=== PATIENT | female | born 1975 | race Caucasian/White ===

== ENCOUNTER → 2023-01-08 08:49 | Outpatient (CLI) | payer OTHER, SELFPAY ==
[2023-01-08 09:59] LABS: Add Manual Diff / Slide Review NO; Basophils Absolute Auto 0 /uL (0-100); Basophils Percent Auto 0.4 % (0-2); Eosinophils Absolute Auto 100 /uL (0-450); Eosinophils Percent Auto 1.6 % (2-4); Hematocrit 37.3 % (36-46); Hemoglobin 12.7 g/dL (12.0-16.0); Lymphocytes Absolute Auto 1500 /uL (1100-4500); Lymphocytes Percent Auto 17.2 % (25-40); Mean Corpuscular HGB Conc 34.1 % (30-36); Mean Corpuscular Hemoglobin 30.1 PG (26-34); Mean Corpuscular Volume 88.3 fL (80-100); Monocytes Absolute Auto 500 /uL (0-900); Monocytes Percent Auto 6.3 % (3-14); Neutrophils Absolute Auto 6400 /uL (1500-7000); Neutrophils Percent Auto 74.5 % (50-75); Platelet Count 244 X10^3/uL (150-400); Red Blood Cell Count 4.22 X10^6/uL (4.0-5.2); Red Cell Distribution Width 12.6 % (11.6-14.8); White Blood Cell Count 8.6 X10^3/uL (4.5-11.0)
[2023-01-08 10:17] LABS: Alanine Aminotransferase 23 IU/L (<35); Albumin 3.9 g/dL (3.5-5.0); Albumin Globulin Ratio 1.3 (1.0-2.8); Alkaline Phosphatase 57 U/L (38-126); Aspartate Aminotransferase 19 IU/L (14-36); Bilirubin Total 0.3 mg/dL (0.2-1.3); Blood Urea Nitrogen 12 mg/dL (7-17); Calcium 8.6 mg/dL (8.4-10.2); Carbon Dioxide 29 mmol/L (22-32); Chloride 103 mmol/L (98-107); Cholesterol 224 mg/dL (140-199); Estimated Glomerular Filt Rate > 60 mL/min (>60); Globulin 2.9 g/dL (1.7-4.1); Glucose 100 mg/dL (70-100); HDL Cholesterol 59 mg/dL (40-60); HEMOLYSIS < 15 (0-50); LDL Cholesterol Calculated 113 mg/dL (<100); Potassium 4.6 mmol/L (3.4-5.1); Sodium 137 mmol/L (137-145); Total Protein 6.8 g/dL (6.3-8.2); Triglycerides 258 mg/dL (35-150)
[2023-01-08 10:45] LABS: TSH w/ Reflex to FT4 1.55 uIU/mL (0.47-4.68)
== END ==
PROVIDERS: Family Provider Family Medicine; PCP Family Medicine; Referring Provider Family Medicine; Visit Provider Family Medicine
DX: Z00.00 Encounter for general adult medical examination without abnormal findings (principal); E78.5 Hyperlipidemia, unspecified
CPT/HCPCS: 36415; 80053; 80061; 84443; 85025

== ENCOUNTER 2023-03-01 12:30 | Day surgery (SDC) | payer OTHER, SELFPAY ==
--- NOTE | 2023-03-01 | PATH_ITS ---
[facility] Accession Number: [id number] No. of containers..04 Tissue . 01 Material submitted: . PART A: rectum - RECTAL POLYP # 1 PART B: colon - DESCENDING POLYP # 1-LARGE PART C: colon - DESCENDING COLON POLYP # 2 -SMALL PART D: rectum - RECTAL POLYP # 2 . 01 Diagnosis: A. Rectum, Polyp #1: Tubular adenoma. . B. Descending, Polyp #1-Large: Tubular adenoma. . C. Descending Colon, Polyp #2-Small: Tubular adenoma. . D. Rectum, Polyp #2, Hyperplastic polyp. [facility] 03/08/2023 1742 Local . 01 Electronically signed: . Irina Allen MD, Pathologist NPI- [id number] . 01 Gross description: . Part A: RECTAL POLYP # 1: Received in formalin are 3 fragment(s) of barrow, soft tissue measuring 0.3 x 0.3 x 0.2 cm to 0.5 x 0.4 x 0.3 cm submitted entirely in 1 cassette(s) Part B: DESCENDING POLYP # 1-LARGE: Received in formalin are multiple fragment(s) of barrow, soft tissue measuring 0.1 x 0.1 x 0.1 cm to 0.8 x 0.4 x 0.2 cm submitted entirely in 1 cassette(s) Part C: DESCENDING COLON POLYP # 2 -SMALL: Received in formalin is 1 fragment(s) of barrow, soft tissue measuring 0.4 x 0.3 x 0.2 cm submitted entirely in 1 cassette(s) Part D: RECTAL POLYP # 2: Received in formalin is 1 fragment(s) of barrow, soft tissue measuring 0.7 x 0.3 x 0.2 cm submitted entirely in 1 cassette(s) /[place] 03/06/2023 0050 Local . 01 Pathologist provided ICD-10: D12.8, D12.4 . 01 CPT . 176455, 819340, 042140, [id number] Specimen Comment: A courtesy copy of this report has been sent to [facility] Performed at: 01 [facility] [address] [place] [address], [place], [place] [id number] MD Hebert Doherty MD Phone: [phone]
[2023-03-01 12:51] VITALS: BP 123/75; PULSE 100; RESP 16; TEMP 36.1; O2SAT 97; BMI 29.1
[2023-03-01] MEDS: LACTATED RINGERS 1,000 ML 150 ML IV (12:58)
--- NOTE | 2023-03-01 13:57 | P.HP_ITS ---
History of Present Illness History of Present Illness Date Patient Seen: 03/01/23 Time Patient Seen: 13:57 Chief complaint: Screening Colonoscopy Narrative: Ms. Geiger is a 47-year-old female who presents today for her 1st screening colonoscopy. She has no family history of colon cancer and no concerning symptoms no bleeding from below she does occasionally have constipation and what she describes as a fissure that it causes occasional pain especially after hard bowel movement. She attributes this to an obstetric issue when she had her son 20 years ago. Overall she is not concerned and she had her questions answered and would like to proceed with a screening colonoscopy today. [facility] Medical History Abnormal Pap smear of cervix (~1995) Borderline hyperlipidemia Human papilloma virus Lumbar strain Preventative health care Sciatica Skin lesion Wears glasses Surgical History Anesthesia [place] teeth removed (~1995) Family History Father Heart valve problem Mother Hyperlipidemia History of heart surgery History of hip replacement History of knee replacement Aunt Esophageal cancer Grandfather Cancer Social History household members: spouse Smoking Status: Never smoker Meds Home Medications and Allergies Home Medications Medication Instructions Recorded Confirmed Type norgestimate-ethinyl estradiol 25 mg PO DAILY 10/19/22 03/01/23 History Allergies Allergy/AdvReac Type Severity Reaction Status Date / Time Penicillins Allergy Intermediate Verified 03/01/23 12:47 Exam Vital Signs (past 8 hours): - 03/01/23 12:51 Temperature 97 F L Pulse Rate 100 H Respiratory Rate 16 Blood Pressure 123/75 Pulse Oximetry 97 Oxygen Delivery Method Room Air Oxygen Delivery Method Room Air Const General: cooperative, healthy appearing and comfortable Nutritional Appearance: average body habitus HENMT Head: normal to inspection Eyes General: appearance normal, both eyes and all related structures Resp Effort & Inspection: normal respiratory effort and able to speak in complete sentences GI Palpation: soft and No tender Assessment & Plan Assessment and plan (1) Colon cancer screening: Status: Acute Assessment & Plan narrative: Presents today for screening colonoscopy I discussed the risks benefits and alternatives including but not limited to perforation of the colon and an incomplete exam she fully understands these risks and would like to proceed.
--- NOTE | 2023-03-01 14:54 | P.OP.COLON_ITS ---
Operative Date/Time/Diagnoses Date of procedure: 03/01/23 Time of procedure: 14:54 Pre-op diagnosis: Colon cancer screening, no family history, 1st colonoscopy Post-op diagnosis: same Procedure & Clinicians Study performed: Colonoscopy and biopsy Same procedure as scheduled: Yes Indications: Screening for colon cancer Surgeon: Saumya Carlos Procedure Notes Procedure in detail: Patient was taken to the endoscopy suite and placed in a left lateral decubitus position. A time-out was performed. With the help of anesthesiologist conscious sedation was induced and monitored throughout the case. A digital rectal exam was performed and there were no masses or strictures. The colonoscope was introduced into the anal canal and advanced. In the distal rectum a relatively large polyp was encountered on the way in this was snared and removed. The scope was then advanced the rest of the way through to the cecum. A photograph of the appendiceal orifice was obtained. The bowel prep was excellent [place] bowel prep score of 3. The scope was then withdrawn for a total of 20 minutes including biopsy times. In the descending colon there was 1 large polyp that was snared and removed. There was a 2nd smaller polyp nearby and another small rectal polyp on the way out that were both removed with a biopsy forceps. The scope was then retroflexed and a photograph of some prominent internal hemorrhoidal piles was obtained. Findings: internal hemorrhoids and polyp(s) Specimen(s): other (1. Rectal polyp somewhat large 2. Descending colon polyp large 3. Small descending colon polyp 4. rectal polyp -small) Complications: none Post-procedure Plan for aftercare: Likely a 5-7 year follow-up, depending on the pathology reports. I do recommend a fiber supplement
[2023-03-01 14:58] VITALS: BP 111/67; PULSE 84; RESP 20; TEMP 36; O2SAT 99
[2023-03-01 15:06] VITALS: BP 117/67; PULSE 87; RESP 20; O2SAT 98
[2023-03-01 15:10] VITALS: BP 109/68; PULSE 80; RESP 15; O2SAT 98
[2023-03-01 15:15] VITALS: BP 117/72; PULSE 76; RESP 22; O2SAT 100
== END 2023-03-01 15:23 | disposition home or self-care (01) ==
PROVIDERS: Family Provider Family Medicine; PCP Family Medicine; Referring Provider Surgery; Visit Provider Surgery
PROC: 0DJD8ZZ Inspection of Lower Intestinal Tract, Via Natural or Artificial Opening Endoscopic (ICD-10-PCS; CPT 45378; principal; 2023-03-01 13:30)
DX: Z12.11 Encounter for screening for malignant neoplasm of colon (principal); K64.8 Other hemorrhoids; D12.8 Benign neoplasm of rectum; D12.4 Benign neoplasm of descending colon
CPT/HCPCS: 45385; 45380; J2704

== ENCOUNTER 2023-03-07 08:15 | Outpatient (RCR) | payer OTHER, SELFPAY ==
--- NOTE | 2023-01-08 22:30 | PT.OIE ---
Current Diagnoses Strain of muscle, fascia and tendon of lower back, initial encounter (01/08/23) Unspecified injury of lower back, initial encounter (01/08/23) Past Medical History (Last Updated 11/05/22 @ 19:46 by Sarah Welch) Abnormal Pap smear of cervix (~1995) Borderline hyperlipidemia Human papilloma virus Lumbar strain Preventative health care Sciatica Skin lesion Wears glasses Past Surgical History (Last Updated 11/05/22 @ 19:46 by Sarah Welch) Anesthesia [place] teeth removed (~1995) Visit Care Team Role Provider Type Hernando Salomon DO Attending Provider Physician Family Provider Primary Care Provider Referring Provider Specialty: Family Practice Address: [address] [place] [address], [facility] Email: [email or web address] Initial Evaluation PT-OP-A Visit Information Start: 01/08/23 07:35 Freq: Status: Active Protocol: Document 01/08/23 07:35 AMB (Rec: 01/08/23 08:18 AMB [id number]) Out-Patient Physical Therapy Visit Information Visit Information Visit Type Initial Evaluation Visit Start Time 07:30 Visit Stop Time 08:15 Total Visit Minutes 45 Visit Number 1 PT-OP-B Current Condition Start: 01/08/23 07:35 Freq: Status: Active Protocol: Document 01/08/23 07:35 AMB (Rec: 01/08/23 08:18 AMB [id number]) Current Condition History of Current Condition Onset Date years Current Complaints back pain History of Current Condition [place] like back went out years ago when trying to remove a stump and never really recovered completely, also had sciatica when with second son and continues to get sciatica on and off. Currently main symptoms occur when sitting at the desk increases back pain, can get pain going down the leg. Pain worse at the desk. Does have sit stand desk. Feels like can throw back out was nervous about yoga. Does have an exercise bike. If sitting more than 4 hours in the day then the back hurts, hurts the rest of the day. PT-OP-C Subjective Start: 01/08/23 07:35 Freq: Status: Active Protocol: Document 01/08/23 07:30 AMB (Rec: 01/08/23 15:50 AMB [id number]) Patient Questionnaires Oswestry Low Back Index Oswestry Score 14 Oswestry Impairment 1 to 19% Impaired (Score 1-19) OP-PT Pain Assessment Comments Pain Comments 4/10 in low back and down the right leg PT-OP-J Posture/Palpation/Skin Start: 01/08/23 07:35 Freq: Status: Active Protocol: Document 01/08/23 07:30 AMB (Rec: 01/08/23 16:06 AMB [id number]) Palpation Assessment Location One Palpation Details 2 finger width diastasis recti at umbilicus PT-OP-K Range of Motion Start: 01/08/23 07:35 Freq: Status: Active Protocol: Document 01/08/23 07:30 AMB (Rec: 01/08/23 16:06 AMB [id number]) Lumbar Spine Range of Motion Lumbar Spine Active Degrees Testing Position Standing Comments flat lumbar spine in flexion ( doesn't really flex lumbar). 5 degrees extension, good sidebending, good movement in thoracic spine PT-OP-M Strength Start: 01/08/23 07:35 Freq: Status: Active Protocol: Document 01/08/23 07:35 AMB (Rec: 01/09/23 22:11 AMB [id number]) Hip Strength Hip Manual Muscle Testing Right Flexion (L2) 4+ Good+ Extension (S1) 4 Good Abduction 4+ Good+ Comments mild coning at abdominals seen with resisted hip flexion in supine Left Flexion (L2) 4+ Good+ Extension (S1) 4 Good Abduction 4+ Good+ PT-OP-Q Treatments Start: 01/08/23 07:35 Freq: Status: Active Protocol: Document 01/08/23 07:30 AMB (Rec: 01/08/23 15:52 AMB [id number]) Therapeutic Exercises Other Exercises 2 Other Exercise Name pelvic tilt Reps/Minutes 10 1 Other Exercise Name jeni pose Reps/Minutes 30x2 PT-OP-T Assessment and Plan Start: 01/08/23 07:35 Freq: Status: Active Protocol: Document 01/08/23 07:35 AMB (Rec: 01/09/23 22:30 AMB [id number]) Physical Therapy Assessment Rehab Potential Rehabilitation Potential Good Evaluation Complexity Number of Personal Factors/Comorbidities 0 Number of Body Systems Impaired 4 or More Clinical Presentation at Evaluation Stable Impairments Impairments Activity Tolerance,Pain, Posture,ROM,Strength Goals Sitting tolerance Usp Goal (LTG) Bertha will sit at her desk for 8 hours without an increase in back pain. LTG Duration 10 weeks ROM Short Term Goal (STG) Bertha will improve her lumbar extension AROM to 10 degrees. STG Duration 5 weeks Gum Sprayer Goal (LTG) Bertha will improve her flexion so that her lumbar spine flexes forward (instead of being locked in neutral and flexing at the hips) when she bends forward to touch her toes. LTG Duration 10 weeks One Impairment HEP Short Term Goal (STG) Bertha will be independent with a HEP to improve her core stability and flexibility. STG Duration 4 weeks Assessment Summary Assessment Bertha attends physical therapy with chronic low back pain that can radiate into the legs R>L. Her worst symptoms are with extended sitting, she was fairly unsure about the ergonomic setup of her work station, as she does sit on a ball that may be too short for her. She presents with significant lumbar stiffness especially into flexion and extension, tends to keep lumbar neutral even with jeni pose and pelvic tilt. She does show poor transversus abdominus engagement and tends to over engage with rectus. Bertha will benefit from core stability training and range of motion training to improve her ability to sit with less pain, as well as further evaluation of the ergonomics of her workstation. Physical Therapy Plan Frequency and Duration Frequency of Treatment 2x/Week Duration of treatment (weeks) 10 Plan of Care Start Date 01/08/23 Plan of Care End Date 03/19/23 Therapeutic Interventions Therapeutic Interventions Home Exercise Program,Joint Mobilizations,Manual Therapy, Neuromuscular Re-education, Self-Care/Home Management, Therapeutic Activities, Therapeutic Exercises Modalities Cold Pack/Ice Massage,Electric Stimulation,Hot Packs, Traction- Mechanical Next Visit Focus/Plan Next Note Type Treatment Note Next Visit Plan Follow up on jeni pose and pelvic tilts to improve TA activation and ROM, follow up on ergonomics of workstation
--- NOTE | 2023-01-08 22:31 | PT.OPPOC ---
Physical, Occupational & Speech Therapy At [facility] Current Diagnoses Strain of muscle, fascia and tendon of lower back, initial encounter (01/08/23) Unspecified injury of lower back, initial encounter (01/08/23) Visit Care Team Role Provider Type Hernando Salomon DO Attending Provider Physician Family Provider Primary Care Provider Referring Provider Specialty: Family Practice Address: [address] [place] [address], [facility] Email: [email or web address] Plan Of Care PT-OP-T Assessment and Plan Start: 01/08/23 07:35 Freq: Status: Active Protocol: Document 01/08/23 07:35 AMB (Rec: 01/09/23 22:30 AMB [id number]) Physical Therapy Assessment Rehab Potential Rehabilitation Potential Good Evaluation Complexity Number of Personal Factors/Comorbidities 0 Number of Body Systems Impaired 4 or More Clinical Presentation at Evaluation Stable Impairments Impairments Activity Tolerance,Pain, Posture,ROM,Strength Goals Sitting tolerance Mcfp Goal (LTG) Bertha will sit at her desk for 8 hours without an increase in back pain. LTG Duration 10 weeks ROM Short Term Goal (STG) Bertha will improve her lumbar extension AROM to 10 degrees. STG Duration 5 weeks Superintendent Of Generation Goal (LTG) Bertha will improve her flexion so that her lumbar spine flexes forward (instead of being locked in neutral and flexing at the hips) when she bends forward to touch her toes. LTG Duration 10 weeks One Impairment HEP Short Term Goal (STG) Bertha will be independent with a HEP to improve her core stability and flexibility. STG Duration 4 weeks Assessment Summary Assessment Bertha attends physical therapy with chronic low back pain that can radiate into the legs R>L. Her worst symptoms are with extended sitting, she was fairly unsure about the ergonomic setup of her work station, as she does sit on a ball that may be too short for her. She presents with significant lumbar stiffness especially into flexion and extension, tends to keep lumbar neutral even with jeni pose and pelvic tilt. She does show poor transversus abdominus engagement and tends to over engage with rectus. Bertha will benefit from core stability training and range of motion training to improve her ability to sit with less pain, as well as further evaluation of the ergonomics of her workstation. Physical Therapy Plan Frequency and Duration Frequency of Treatment 2x/Week Duration of treatment (weeks) 10 Plan of Care Start Date 01/08/23 Plan of Care End Date 03/19/23 Therapeutic Interventions Therapeutic Interventions Home Exercise Program,Joint Mobilizations,Manual Therapy, Neuromuscular Re-education, Self-Care/Home Management, Therapeutic Activities, Therapeutic Exercises Modalities Cold Pack/Ice Massage,Electric Stimulation,Hot Packs, Traction- Mechanical Next Visit Focus/Plan Next Note Type Treatment Note Next Visit Plan Follow up on jeni pose and pelvic tilts to improve TA activation and ROM, follow up on ergonomics of workstation Plan of Care Dates Plan of Care Start Date 01/08/23 Plan of Care End Date 03/19/23 Electronically Signed by: Nina Ramey, PT 01/09/23 8246 If you are in agreement with this Plan of Care, please return a signed and dated copy. I have reviewed this Plan of Care and certify that the skilled therapy services above are required to meet the patient?s needs. Physician Signature Date Printed Name and Credentials Clinical Instructor Signature Printed Name and Credentials
--- NOTE | 2023-01-11 08:22 | PT.OTN ---
Current Diagnoses Strain of muscle, fascia and tendon of lower back, initial encounter (01/11/23) Unspecified injury of lower back, initial encounter (01/11/23) Physical Therapy Treatment Note PT-OP-A Visit Information Start: 01/08/23 07:35 Freq: Status: Active Protocol: Document 01/11/23 07:32 SP (Rec: 01/11/23 08:29 SP [id number]) Out-Patient Physical Therapy Visit Information Visit Information Visit Type Treatment Note Visit Start Time 07:33 Visit Stop Time 08:22 Total Visit Minutes 49 Visit Number 2 Number of FLIGHT COORDINATOR Visits 1 PT-OP-B Current Condition Start: 01/08/23 07:35 Freq: Status: Active Protocol: Document 01/08/23 07:35 AMB (Rec: 01/08/23 08:18 AMB [id number]) Current Condition History of Current Condition Onset Date years Current Complaints back pain History of Current Condition [place] like back went out years ago when trying to remove a stump and never really recovered completely, also had sciatica when with second son and continues to get sciatica on and off. Currently main symptoms occur when sitting at the desk increases back pain, can get pain going down the leg. Pain worse at the desk. Does have sit stand desk. Feels like can throw back out was nervous about yoga. Does have an exercise bike. If sitting more than 4 hours in the day then the back hurts, hurts the rest of the day. PT-OP-C Subjective Start: 01/08/23 07:35 Freq: Status: Active Protocol: Document 01/11/23 07:32 SP (Rec: 01/11/23 08:29 SP [id number]) OP-PT Subjective Patient Comments Patient Comments Pt PT-OP-J Posture/Palpation/Skin Start: 01/08/23 07:35 Freq: Status: Active Protocol: Document 01/08/23 07:30 AMB (Rec: 01/08/23 16:06 AMB [id number]) Palpation Assessment Location One Palpation Details 2 finger width diastasis recti at umbilicus PT-OP-K Range of Motion Start: 01/08/23 07:35 Freq: Status: Active Protocol: Document 01/08/23 07:30 AMB (Rec: 01/08/23 16:06 AMB [id number]) Lumbar Spine Range of Motion Lumbar Spine Active Degrees Testing Position Standing Comments flat lumbar spine in flexion ( doesn't really flex lumbar). 5 degrees extension, good sidebending, good movement in thoracic spine PT-OP-M Strength Start: 01/08/23 07:35 Freq: Status: Active Protocol: Document 01/08/23 07:35 AMB (Rec: 01/09/23 22:11 AMB [id number]) Hip Strength Hip Manual Muscle Testing Right Flexion (L2) 4+ Good+ Extension (S1) 4 Good Abduction 4+ Good+ Comments mild coning at abdominals seen with resisted hip flexion in supine Left Flexion (L2) 4+ Good+ Extension (S1) 4 Good Abduction 4+ Good+ PT-OP-Q Treatments Start: 01/08/23 07:35 Freq: Status: Active Protocol: Document 01/11/23 07:32 SP (Rec: 01/11/23 08:29 SP [id number]) Therapeutic Exercises Supine Exercises stretch Supine Exercise Name piriformis, aguila stretch Side bilateral Reps/Minutes 30x2 each Comments good feedback stretch Other Exercises quadruped cat camel, tail wag Other Exercise Name discussed but not performed Comments perform next tx 1/2 kneel hip flexor stretch Other Exercise Name add next 2 Other Exercise Name 1. pelvic tilt f/b/lateral 2. TA october 3. LAQ, Side bilateral Resistance tball 55 cm Equipment Used tactile cue postural alignment during october/ good core fac with 55cm bal Reps/Minutes 10 each, ed perform 2x/day at work ball on floor, near table support PRN Comments decreased ROM anterior tilt, cued slow controlled ROM each direction 1 Other Exercise Name jeni pose Reps/Minutes 30x2 Manual Therapy Treatment Soft Tissue Mobilization Hip flexor Body Location Psoas Mobilization Type Sustained Pressure Intensity/Depth Moderate Body Position Hooklying Comments manual and ed hip flexor stretch hip Body Location B Glut Med/Max/Piriformis Mobilization Type Strumming,Sustained Pressure, Other Intensity/Depth Moderate Body Position Prone Comments manual and w/ FM hip IR/ER, ed use ball on wall standing back Body Location B QL, ES, Mobilization Type Strumming Intensity/Depth Moderate Body Position Prone Comments manual and ed use ball on wall standing PT-OP-T Assessment and Plan Start: 01/08/23 07:35 Freq: Status: Active Protocol: Document 01/11/23 07:32 SP (Rec: 01/11/23 08:29 SP [id number]) Physical Therapy Assessment Goals Sitting tolerance Group Home Goal (LTG) Bertha will sit at her desk for 8 hours without an increase in back pain. LTG Duration 10 weeks ROM Short Term Goal (STG) Bertha will improve her lumbar extension AROM to 10 degrees. STG Duration 5 weeks Chocolate Dipper Goal (LTG) Bertha will improve her flexion so that her lumbar spine flexes forward (instead of being locked in neutral and flexing at the hips) when she bends forward to touch her toes. LTG Duration 10 weeks One Impairment HEP Short Term Goal (STG) Bertha will be independent with a HEP to improve her core stability and flexibility. STG Duration 4 weeks Assessment Summary Assessment Pt responded well to manual Physical Therapy Plan Frequency and Duration Frequency of Treatment 2x/Week Duration of treatment (weeks) 10 Plan of Care Start Date 01/08/23 Plan of Care End Date 03/19/23 Therapeutic Interventions Therapeutic Interventions Home Exercise Program,Joint Mobilizations,Manual Therapy, Neuromuscular Re-education, Self-Care/Home Management, Therapeutic Activities, Therapeutic Exercises Modalities Cold Pack/Ice Massage,Electric Stimulation,Hot Packs, Traction- Mechanical Next Visit Focus/Plan Next Note Type Treatment Note Next Visit Plan Good response to child's post, added pelvic tilt/march/LAQ on tball improved pelvic ROM. Ergonomics of workstation ball to low/station to high, willing to get bigger ball. Recheck next tx with our 65cm. Potential towel in LB sitting in car.
--- NOTE | 2023-01-18 08:15 | PT.OTN ---
Current Diagnoses Strain of muscle, fascia and tendon of lower back, initial encounter (01/18/23) Unspecified injury of lower back, initial encounter (01/18/23) Physical Therapy Treatment Note PT-OP-A Visit Information Start: 01/08/23 07:35 Freq: Status: Active Protocol: Document 01/18/23 08:15 SP (Rec: 01/18/23 09:05 SP [id number]) Out-Patient Physical Therapy Visit Information Visit Information Visit Type Treatment Note Visit Start Time 07:30 Visit Stop Time 08:15 Total Visit Minutes 45 Visit Number 3 Number of SEAMAN Visits 2 PT-OP-B Current Condition Start: 01/08/23 07:35 Freq: Status: Active Protocol: Document 01/08/23 07:35 AMB (Rec: 01/08/23 08:18 AMB [id number]) Current Condition History of Current Condition Onset Date years Current Complaints back pain History of Current Condition [place] like back went out years ago when trying to remove a stump and never really recovered completely, also had sciatica when with second son and continues to get sciatica on and off. Currently main symptoms occur when sitting at the desk increases back pain, can get pain going down the leg. Pain worse at the desk. Does have sit stand desk. Feels like can throw back out was nervous about yoga. Does have an exercise bike. If sitting more than 4 hours in the day then the back hurts, hurts the rest of the day. PT-OP-C Subjective Start: 01/08/23 07:35 Freq: Status: Active Protocol: Document 01/18/23 08:15 SP (Rec: 01/18/23 09:05 SP [id number]) OP-PT Subjective Patient Comments Patient Comments Pt reports sciatica less but more sore. PT-OP-J Posture/Palpation/Skin Start: 01/08/23 07:35 Freq: Status: Active Protocol: Document 01/08/23 07:30 AMB (Rec: 01/08/23 16:06 AMB [id number]) Palpation Assessment Location One Palpation Details 2 finger width diastasis recti at umbilicus PT-OP-K Range of Motion Start: 01/08/23 07:35 Freq: Status: Active Protocol: Document 01/08/23 07:30 AMB (Rec: 01/08/23 16:06 AMB [id number]) Lumbar Spine Range of Motion Lumbar Spine Active Degrees Testing Position Standing Comments flat lumbar spine in flexion ( doesn't really flex lumbar). 5 degrees extension, good sidebending, good movement in thoracic spine PT-OP-M Strength Start: 01/08/23 07:35 Freq: Status: Active Protocol: Document 01/08/23 07:35 AMB (Rec: 01/09/23 22:11 AMB [id number]) Hip Strength Hip Manual Muscle Testing Right Flexion (L2) 4+ Good+ Extension (S1) 4 Good Abduction 4+ Good+ Comments mild coning at abdominals seen with resisted hip flexion in supine Left Flexion (L2) 4+ Good+ Extension (S1) 4 Good Abduction 4+ Good+ PT-OP-Q Treatments Start: 01/08/23 07:35 Freq: Status: Active Protocol: Document 01/18/23 08:15 SP (Rec: 01/18/23 09:05 SP [id number]) Therapeutic Exercises Supine Exercises bug Supine Exercise Name added to HEP Side bilateral Reps/Minutes x10 Comments cued slow pacing, ROM w/ TA good core fac, painfree stretch Supine Exercise Name piriformis, aguila stretch Side bilateral Equipment Used grasp opp LE KTC Reps/Minutes 60 each Comments good feedback stretch Prone Exercises plank Prone Exercise Name tall vs elbows off feet (next tx assess off knees) Reps/Minutes 25 sec tall, didn't time elbows Comments requires cues lower pelvis w/ neutral pos, head align, TA & buttock squeeze Standing Exercises paloff press Standing Exercise Name added to HEP Side bilateral Resistance Tb #2 (orange) Reps/Minutes x10 Comments cued soft knee, elongation, elbows under press out from navel Other Exercises 1/2 kneel hip flexor stretch Other Exercise Name added 1/2 kneel vs sidesit tball LE ext lunge stance Side bilateral Manual Therapy Treatment Soft Tissue Mobilization Hip flexor Body Location B Psoas Mobilization Type Sustained Pressure Intensity/Depth Moderate Body Position Hooklying Comments manual and ed hip flexor stretch (EO table/bed, 1/2 kneel, side sit tball). hip Body Location B Glut Med/Max/Piriformis Mobilization Type Strumming,Sustained Pressure, Other Intensity/Depth Moderate Body Position Prone Comments manual and w/ FM hip IR/ER, ed use ball on wall standing back Body Location B QL, ES, Mobilization Type Strumming Intensity/Depth Moderate Body Position Prone Comments manual and review use ball on wall standing PT-OP-T Assessment and Plan Start: 01/08/23 07:35 Freq: Status: Active Protocol: Document 01/18/23 08:15 SP (Rec: 01/18/23 09:05 SP [id number]) Physical Therapy Assessment Goals Sitting tolerance Insecticide Expert Goal (LTG) Bertha will sit at her desk for 8 hours without an increase in back pain. LTG Duration 10 weeks ROM Short Term Goal (STG) Bertha will improve her lumbar extension AROM to 10 degrees. STG Duration 5 weeks Penitentiary Goal (LTG) Bertha will improve her flexion so that her lumbar spine flexes forward (instead of being locked in neutral and flexing at the hips) when she bends forward to touch her toes. LTG Duration 10 weeks One Impairment HEP Short Term Goal (STG) Bertha will be independent with a HEP to improve her core stability and flexibility. STG Duration 4 weeks Assessment Summary Assessment Pt reports decreased back tension post manual. Pt challenged with plank perform as self HEP, cues for proper form for spinal and scapular complex support, revisit next tx. Pt improved core support to LB with added paloff press and bug this tx with no LB complaints. She will bring in her Tball next tx to blow up. She brought in pic of her workstation, with more air probable will be better alignment. Physical Therapy Plan Frequency and Duration Frequency of Treatment 2x/Week Duration of treatment (weeks) 10 Plan of Care Start Date 01/08/23 Plan of Care End Date 03/19/23 Therapeutic Interventions Therapeutic Interventions Home Exercise Program,Joint Mobilizations,Manual Therapy, Neuromuscular Re-education, Self-Care/Home Management, Therapeutic Activities, Therapeutic Exercises Modalities Cold Pack/Ice Massage,Electric Stimulation,Hot Packs, Traction- Mechanical Next Visit Focus/Plan Next Note Type Treatment Note Next Visit Plan Recheck bug, elbow plank off knees/vs feet, 1/2 kneel hip flexor stretch and carryover stretching at work. Ergonomics of workstation ball to low/station to high, willing to get bigger ball. Recheck next tx with our 65cm. Potential towel in LB sitting in car.
--- NOTE | 2023-02-08 08:20 | PT.OTN ---
Addendum entered and electronically signed by Luli Yang, YARA 02/08/23 08:30: Check if if needing more than 2 appts to DC HEP or continue need add appts. Original Note: Current Diagnoses Strain of muscle, fascia and tendon of lower back, initial encounter (02/08/23) Unspecified injury of lower back, initial encounter (02/08/23) Physical Therapy Treatment Note PT-OP-A Visit Information Start: 01/08/23 07:35 Freq: Status: Active Protocol: Document 02/08/23 07:34 SP (Rec: 02/08/23 08:21 SP [id number]) Out-Patient Physical Therapy Visit Information Visit Information Visit Type Treatment Note Visit Start Time 07:34 Visit Stop Time 08:20 Total Visit Minutes 46 Visit Number 4 Number of FIELD ADJUSTER Visits 3 PT-OP-B Current Condition Start: 01/08/23 07:35 Freq: Status: Active Protocol: Document 01/08/23 07:35 AMB (Rec: 01/08/23 08:18 AMB [id number]) Current Condition History of Current Condition Onset Date years Current Complaints back pain History of Current Condition [place] like back went out years ago when trying to remove a stump and never really recovered completely, also had sciatica when with second son and continues to get sciatica on and off. Currently main symptoms occur when sitting at the desk increases back pain, can get pain going down the leg. Pain worse at the desk. Does have sit stand desk. Feels like can throw back out was nervous about yoga. Does have an exercise bike. If sitting more than 4 hours in the day then the back hurts, hurts the rest of the day. PT-OP-C Subjective Start: 01/08/23 07:35 Freq: Status: Active Protocol: Document 02/08/23 07:34 SP (Rec: 02/08/23 08:21 SP [id number]) OP-PT Subjective Patient Comments Patient Comments Pt reports was out town 1.5 weeks visit family, back hurting seated on plane 4 hrs tried to do stretching HEP, back to doing HEP and yoga classes 1x/wk routine and notices improvement when keep up with. Pt reports yoga classes on zoom, modifies positions as needed. PT-OP-J Posture/Palpation/Skin Start: 01/08/23 07:35 Freq: Status: Active Protocol: Document 01/08/23 07:30 AMB (Rec: 01/08/23 16:06 AMB [id number]) Palpation Assessment Location One Palpation Details 2 finger width diastasis recti at umbilicus PT-OP-K Range of Motion Start: 01/08/23 07:35 Freq: Status: Active Protocol: Document 01/08/23 07:30 AMB (Rec: 01/08/23 16:06 AMB [id number]) Lumbar Spine Range of Motion Lumbar Spine Active Degrees Testing Position Standing Comments flat lumbar spine in flexion ( doesn't really flex lumbar). 5 degrees extension, good sidebending, good movement in thoracic spine PT-OP-M Strength Start: 01/08/23 07:35 Freq: Status: Active Protocol: Document 01/08/23 07:35 AMB (Rec: 01/09/23 22:11 AMB [id number]) Hip Strength Hip Manual Muscle Testing Right Flexion (L2) 4+ Good+ Extension (S1) 4 Good Abduction 4+ Good+ Comments mild coning at abdominals seen with resisted hip flexion in supine Left Flexion (L2) 4+ Good+ Extension (S1) 4 Good Abduction 4+ Good+ PT-OP-Q Treatments Start: 01/08/23 07:35 Freq: Status: Active Protocol: Document 02/08/23 07:34 SP (Rec: 02/08/23 08:21 SP [id number]) Therapeutic Exercises Supine Exercises bug Supine Exercise Name reviewed HEP Side bilateral Reps/Minutes 4 sets of 5 reps Comments cued slow pacing control, ROM w/ TA good core fac, painfree stretch Supine Exercise Name performed seated on Tball for carryover work Side bilateral Equipment Used grasp opp LE KTC Reps/Minutes 60 each Comments good feedback stretch Prone Exercises plank Prone Exercise Name tall vs elbows off knees Reps/Minutes 30 sec, 35 sec Comments requires cues lower pelvis w/ neutral pos, head align, TA & buttock squeeze Standing Exercises band walk Standing Exercise Name added to HEP Resistance Tb #2 at mid [place] Reps/Minutes 15 ft x2 laps Comments cued elongated posture, soft knee, eccentric trail LE ft clearance- imp rep paloff press Standing Exercise Name reviewed HEP (standing more effort felt core than seated /) Side bilateral Resistance Tb #2 (orange) Reps/Minutes x10 Comments cued soft knee, elongation, elbows under press out from navel Other Exercises self STMs Other Exercise Name added to HEP: ES, piriformis Side bilateral Equipment Used racquetball onwall Reps/Minutes 1min total Comments good response 1/2 kneel hip flexor stretch Other Exercise Name reviewed 1/2 kneel vs sidesit tball LE ext lunge stance Side bilateral Reps/Minutes 30 x2 Comments cued neutral pelvis 2 Other Exercise Name 1. pelvic tilt f/b/lateral 2. TA october 3. LAQ 4. paloff press 5. pir&flex Side bilateral Resistance tball 65 cm in PT (55cm work) Equipment Used ed periodic during work day for stretching Reps/Minutes 10 each, ed perform 2x/day at work ball on floor, near table support PRN Comments occasional cue for elongated posture/ TA fac PT-OP-T Assessment and Plan Start: 01/08/23 07:35 Freq: Status: Active Protocol: Document 02/08/23 07:34 SP (Rec: 02/08/23 08:21 SP [id number]) Physical Therapy Assessment Goals Sitting tolerance Usp Goal (LTG) Bertha will sit at her desk for 8 hours without an increase in back pain. 02/08/23: stands up at times ( work station standing as well) , stated buttocks sore about 6 hrs. Sat on airplane for 4hrs and back started to hurt. LTG Duration 10 weeks progressing 02/08/23 ROM Short Term Goal (STG) Bertha will improve her lumbar extension AROM to 10 degrees. STG Duration 5 weeks Scudding Inspector Goal (LTG) Bertha will improve her flexion so that her lumbar spine flexes forward (instead of being locked in neutral and flexing at the hips) when she bends forward to touch her toes. 02/08/23: sore to stand hip flexion fwd, improvement in ROM from initial eval LTG Duration 10 weeks progressing 02/08/23 One Impairment HEP Short Term Goal (STG) Bertha will be independent with a HEP to improve her core stability and flexibility. 02/08/23: supine & Seated stretching, Seated Tball ex, paloff press, bug, added band walk today. STG Duration 4 weeks progressing 02/08 Assessment Summary Assessment Pt reports good back response to ther ex, cues for slower pacing and awareness of TA engagement control during bug, palloff level shlds and added band walk. Pt reported back felt fine leaving. Physical Therapy Plan Frequency and Duration Frequency of Treatment 2x/Week Duration of treatment (weeks) 10 Plan of Care Start Date 01/08/23 Plan of Care End Date 03/19/23 Therapeutic Interventions Therapeutic Interventions Home Exercise Program,Joint Mobilizations,Manual Therapy, Neuromuscular Re-education, Self-Care/Home Management, Therapeutic Activities, Therapeutic Exercises Modalities Cold Pack/Ice Massage,Electric Stimulation,Hot Packs, Traction- Mechanical Next Visit Focus/Plan Next Note Type Treatment Note Next Visit Plan Recheck bug, elbow plank off knees, added band walk. Ergonomics of workstation ball to low/station to high, willing to get bigger ball. Recheck if got bigger 65cm for improved posture seated work station (does adjust to standing as well). Potential towel in LB sitting in car.
--- NOTE | 2023-02-11 08:15 | PT.OTN ---
Addendum entered and electronically signed by Luli Yang PTA 02/11/23 16:04: Add yoga triangle, yoga poses next tx. Original Note: Current Diagnoses Strain of muscle, fascia and tendon of lower back, initial encounter (02/11/23) Unspecified injury of lower back, initial encounter (02/11/23) Physical Therapy Treatment Note PT-OP-A Visit Information Start: 01/08/23 07:35 Freq: Status: Active Protocol: Document 02/11/23 07:34 SP (Rec: 02/11/23 08:18 SP [id number]) Out-Patient Physical Therapy Visit Information Visit Information Visit Type Treatment Note Visit Start Time 07:34 Visit Stop Time 08:15 Total Visit Minutes 41 Visit Number 5 Number of WELLHEAD PUMPER Visits 4 PT-OP-B Current Condition Start: 01/08/23 07:35 Freq: Status: Active Protocol: Document 01/08/23 07:35 AMB (Rec: 01/08/23 08:18 AMB [id number]) Current Condition History of Current Condition Onset Date years Current Complaints back pain History of Current Condition [place] like back went out years ago when trying to remove a stump and never really recovered completely, also had sciatica when with second son and continues to get sciatica on and off. Currently main symptoms occur when sitting at the desk increases back pain, can get pain going down the leg. Pain worse at the desk. Does have sit stand desk. Feels like can throw back out was nervous about yoga. Does have an exercise bike. If sitting more than 4 hours in the day then the back hurts, hurts the rest of the day. PT-OP-C Subjective Start: 01/08/23 07:35 Freq: Status: Active Protocol: Document 02/11/23 07:34 SP (Rec: 02/11/23 08:18 SP [id number]) OP-PT Subjective Patient Comments Patient Comments Pt reports back continues to be sore coming in today, thinks more when sitting at work. She states does the exercises on EOB due to tball (55cm) at work and ordered 65cm coming mail. PT-OP-J Posture/Palpation/Skin Start: 01/08/23 07:35 Freq: Status: Active Protocol: Document 01/08/23 07:30 AMB (Rec: 06/06/23 16:06 AMB [id number]) Palpation Assessment Location One Palpation Details 2 finger width diastasis recti at umbilicus PT-OP-K Range of Motion Start: 01/08/23 07:35 Freq: Status: Active Protocol: Document 01/08/23 07:30 AMB (Rec: 01/08/23 16:06 AMB [id number]) Lumbar Spine Range of Motion Lumbar Spine Active Degrees Testing Position Standing Comments flat lumbar spine in flexion ( doesn't really flex lumbar). 5 degrees extension, good sidebending, good movement in thoracic spine PT-OP-M Strength Start: 01/08/23 07:35 Freq: Status: Active Protocol: Document 01/08/23 07:35 AMB (Rec: 01/09/23 22:11 AMB [id number]) Hip Strength Hip Manual Muscle Testing Right Flexion (L2) 4+ Good+ Extension (S1) 4 Good Abduction 4+ Good+ Comments mild coning at abdominals seen with resisted hip flexion in supine Left Flexion (L2) 4+ Good+ Extension (S1) 4 Good Abduction 4+ Good+ PT-OP-Q Treatments Start: 01/08/23 07:35 Freq: Status: Active Protocol: Document 02/11/23 07:34 SP (Rec: 02/11/23 08:18 SP [id number]) Therapeutic Exercises Supine Exercises bug Supine Exercise Name reviewed HEP Side bilateral Reps/Minutes 2x 10 reps Comments cued slow pacing control, ROM w/ TA good core fac, painfree stretch Supine Exercise Name KTC, Lateral Pirif & QL Side bilateral Reps/Minutes 60 each Comments good feedback stretch Prone Exercises plank Prone Exercise Name forearm plank off knees Equipment Used 22sec off hands/feet, cued trunk alignment Reps/Minutes 35 sec x2 Comments tactile cue for CS alignment chin tuck/ ext neutral, flat across back/glut Standing Exercises shoulder extension Standing Exercise Name added to HEP Side bilateral Resistance TB #2 orange Reps/Minutes 2x10 Comments cued elbow ext, inferior as pull back to side of hips for core fac/no UT band walk Standing Exercise Name reviewed HEP Resistance Tb #2 at mid [place] (RTB in PT) Reps/Minutes 15 ft x2 laps Comments cued elongated posture, soft knee, eccentric trail LE ft clearance- imp rep paloff press Standing Exercise Name reviewed HEP (standing more effort felt core than seated 7 /10) Side bilateral Resistance Tb #2 (orange) Reps/Minutes x10 Comments cued soft knee, elongation, elbows under press out from navel Other Exercises 1/2 kneel hip flexor stretch Other Exercise Name sit tball LE ext lunge stance Side bilateral Reps/Minutes 30 Comments cued neutral pelvis, end tx 2 Other Exercise Name 1. pelvic tilt f/b/lateral 2. TA october 3. LAQ 4. paloff press 5. pir&flex Side bilateral Resistance tball 65 cm in PT/home (55cm work) Equipment Used ed periodic during work day for stretching Reps/Minutes 10 each, ed perform 2x/day at work ball on floor, near table support PRN Comments occasional cue for elongated posture/ TA fac 1 Other Exercise Name jeni pose Reps/Minutes 30x2 PT-OP-T Assessment and Plan Start: 01/08/23 07:35 Freq: Status: Active Protocol: Document 02/11/23 07:34 SP (Rec: 02/11/23 08:18 SP [id number]) Physical Therapy Assessment Goals Sitting tolerance Operative Supervisor Goal (LTG) Bertha will sit at her desk for 8 hours without an increase in back pain. 02/08/23: stands up at times ( work station standing as well) , stated buttocks sore about 6 hrs. Sat on airplane for 4hrs and back started to hurt. LTG Duration 10 weeks progressing 02/08/23 ROM Short Term Goal (STG) Bertha will improve her lumbar extension AROM to 10 degrees. STG Duration 5 weeks Operative Supervisor Goal (LTG) Bertha will improve her flexion so that her lumbar spine flexes forward (instead of being locked in neutral and flexing at the hips) when she bends forward to touch her toes. 02/08/23: sore to stand hip flexion fwd, improvement in ROM from initial eval LTG Duration 10 weeks progressing 02/08/23 One Impairment HEP Short Term Goal (STG) Bertha will be independent with a HEP to improve her core stability and flexibility. 02/08/23: supine & Seated stretching, Seated Tball ex, paloff press, bug, added band walk today. 02/11/23: added shld ext TB STG Duration 4 weeks progressing 02/11/23 Assessment Summary Assessment Pt reports PT has been helping , back hurts 80% less. She requires cues for slower pacing, head positioning and alignment corrections during bug and planks with improved hold time. Able to perform 20 sec off hands/feet with more stability this tx. Suggested towel roll behind back for car LB support, she states uses and small pillow helps. Physical Therapy Plan Frequency and Duration Frequency of Treatment 2x/Week Duration of treatment (weeks) 10 Plan of Care Start Date 01/08/23 Plan of Care End Date 03/19/23 Therapeutic Interventions Therapeutic Interventions Home Exercise Program,Joint Mobilizations,Manual Therapy, Neuromuscular Re-education, Self-Care/Home Management, Therapeutic Activities, Therapeutic Exercises Modalities Cold Pack/Ice Massage,Electric Stimulation,Hot Packs, Traction- Mechanical Next Visit Focus/Plan Next Note Type Treatment Note Next Visit Plan discussed with pt ask be on PT waiting list. check HEP, added shld ext. Review planks and bug form. Ask how bigger ball at work? POC: core progression with 65cm: bridge, add HS curl if able.
--- NOTE | 2023-03-07 09:10 | PT.OTN ---
Current Diagnoses Strain of muscle, fascia and tendon of lower back, initial encounter (03/07/23) Strain of muscle, fascia and tendon of lower back, sequela (03/07/23) Unspecified injury of lower back, initial encounter (03/07/23) Unspecified injury of lower back, sequela (03/07/23) Physical Therapy Treatment Note PT-OP-A Visit Information Start: 01/08/23 07:35 Freq: Status: Active Protocol: Document 03/07/23 08:15 ED (Rec: 03/07/23 09:10 ED [id number]) Out-Patient Physical Therapy Visit Information Visit Information Visit Type Treatment Note Visit Start Time 08:30 Visit Stop Time 09:05 Total Visit Minutes 35 Visit Number 6 Number of CIRCUIT TESTER Visits 0 PT-OP-B Current Condition Start: 01/08/23 07:35 Freq: Status: Active Protocol: Document 01/08/23 07:35 AMB (Rec: 01/08/23 08:18 AMB [id number]) Current Condition History of Current Condition Onset Date years Current Complaints back pain History of Current Condition [place] like back went out years ago when trying to remove a stump and never really recovered completely, also had sciatica when with second son and continues to get sciatica on and off. Currently main symptoms occur when sitting at the desk increases back pain, can get pain going down the leg. Pain worse at the desk. Does have sit stand desk. Feels like can throw back out was nervous about yoga. Does have an exercise bike. If sitting more than 4 hours in the day then the back hurts, hurts the rest of the day. PT-OP-C Subjective Start: 01/08/23 07:35 Freq: Status: Active Protocol: Document 03/07/23 08:15 ED (Rec: 03/07/23 09:10 ED [id number]) OP-PT Subjective Patient Comments Patient Comments Pt returns to PT after ~1 month away. States she has been doing yoga on and off at home. States her radicular pain is mostly gone and her primary complaint is pain c/ prolonged sitting. PT-OP-J Posture/Palpation/Skin Start: 01/08/23 07:35 Freq: Status: Active Protocol: Document 01/08/23 07:30 AMB (Rec: 01/08/23 16:06 AMB [id number]) Palpation Assessment Location One Palpation Details 2 finger width diastasis recti at umbilicus PT-OP-K Range of Motion Start: 01/08/23 07:35 Freq: Status: Active Protocol: Document 01/08/23 07:30 AMB (Rec: 01/08/23 16:06 AMB [id number]) Lumbar Spine Range of Motion Lumbar Spine Active Degrees Testing Position Standing Comments flat lumbar spine in flexion ( doesn't really flex lumbar). 5 degrees extension, good sidebending, good movement in thoracic spine PT-OP-M Strength Start: 01/08/23 07:35 Freq: Status: Active Protocol: Document 01/08/23 07:35 AMB (Rec: 01/09/23 22:11 AMB [id number]) Hip Strength Hip Manual Muscle Testing Right Flexion (L2) 4+ Good+ Extension (S1) 4 Good Abduction 4+ Good+ Comments mild coning at abdominals seen with resisted hip flexion in supine Left Flexion (L2) 4+ Good+ Extension (S1) 4 Good Abduction 4+ Good+ PT-OP-Q Treatments Start: 01/08/23 07:35 Freq: Status: Active Protocol: Document 03/07/23 08:15 ED (Rec: 03/07/23 09:10 ED [id number]) Cardio Equipment Treadmill Duration (Minutes) 5 Speed 2.0 Incline 1 Therapeutic Exercises Supine Exercises Rocio big 3 Reps/Minutes x5 5'' holds Other Exercises B stance RDL Resistance 10# Reps/Minutes 1x10 bent over row Resistance 10# Reps/Minutes 1x10 PT-OP-T Assessment and Plan Start: 01/08/23 07:35 Freq: Status: Active Protocol: Document 03/07/23 08:15 ED (Rec: 03/07/23 09:10 ED [id number]) Physical Therapy Assessment Assessment Summary Assessment PT had patient perform Rocio Big 3 core matrix to improve core bracing skills and improve motor control of core. Pt able to do all 3 movements c/o requiring movement modifications. PT also reintroduced patient to deadlifts and bent over rows for additional core training. Pt unsure if she wants to continue c/ PT at this time. PT informed her she has 1 additional visit, 03/12.
--- NOTE | 2023-03-26 08:00 | PT.OPDS ---
Current Diagnoses Strain of muscle, fascia and tendon of lower back, sequela (03/07/23) Unspecified injury of lower back, sequela (03/07/23) Visit Care Team Role Provider Type Hernando Salomon DO Attending Provider Physician Family Provider Primary Care Provider Referring Provider Specialty: Family Practice Address: [address] [place] [address], [facility] Email: [email or web address] Visit Number Visit Number 6 Discharge Summary PT-OP-B Current Condition Start: 01/08/23 07:35 Freq: Status: Active Protocol: Document 01/08/23 07:35 AMB (Rec: 01/08/23 08:18 AMB [id number]) Current Condition History of Current Condition Onset Date years Current Complaints back pain History of Current Condition [place] like back went out years ago when trying to remove a stump and never really recovered completely, also had sciatica when with second son and continues to get sciatica on and off. Currently main symptoms occur when sitting at the desk increases back pain, can get pain going down the leg. Pain worse at the desk. Does have sit stand desk. Feels like can throw back out was nervous about yoga. Does have an exercise bike. If sitting more than 4 hours in the day then the back hurts, hurts the rest of the day. PT-OP-C Subjective Start: 01/08/23 07:35 Freq: Status: Active Protocol: Document 03/07/23 08:15 ED (Rec: 03/07/23 09:10 ED [id number]) OP-PT Subjective Patient Comments Patient Comments Pt returns to PT after ~1 month away. States she has been doing yoga on and off at home. States her radicular pain is mostly gone and her primary complaint is pain c/ prolonged sitting. PT-OP-J Posture/Palpation/Skin Start: 01/08/23 07:35 Freq: Status: Active Protocol: Document 01/08/23 07:30 AMB (Rec: 01/08/23 16:06 AMB [id number]) Palpation Assessment Location One Palpation Details 2 finger width diastasis recti at umbilicus PT-OP-K Range of Motion Start: 01/08/23 07:35 Freq: Status: Active Protocol: Document 01/08/23 07:30 AMB (Rec: 01/08/23 16:06 AMB [id number]) Lumbar Spine Range of Motion Lumbar Spine Active Degrees Testing Position Standing Comments flat lumbar spine in flexion ( doesn't really flex lumbar). 5 degrees extension, good sidebending, good movement in thoracic spine PT-OP-M Strength Start: 01/08/23 07:35 Freq: Status: Active Protocol: Document 01/08/23 07:35 AMB (Rec: 01/09/23 22:11 AMB [id number]) Hip Strength Hip Manual Muscle Testing Right Flexion (L2) 4+ Good+ Extension (S1) 4 Good Abduction 4+ Good+ Comments mild coning at abdominals seen with resisted hip flexion in supine Left Flexion (L2) 4+ Good+ Extension (S1) 4 Good Abduction 4+ Good+ PT-OP-T Assessment and Plan Start: 01/08/23 07:35 Freq: Status: Active Protocol: Document 03/26/23 07:59 ED (Rec: 03/26/23 08:00 ED [id number]) Physical Therapy Assessment Assessment Summary Assessment Pt started physical therapy in early January and has had 6 total visits including evaluation. The patient's POC for physical therapy is currently and she will need a new referral if she would like to continue with physical therapy.
== END 2023-04-03 14:35 | disposition home or self-care (01) ==
LOC: PHYS 08:15
PROVIDERS: Family Provider Family Medicine; PCP Family Medicine; Referring Provider Family Medicine; Visit Provider Family Medicine
DX: S39.92XS Unspecified injury of lower back, sequela (principal); S39.012S Strain of muscle, fascia and tendon of lower back, sequela
CPT/HCPCS: 97110; 97140; 97161

== ENCOUNTER → 2023-08-27 08:36 | Outpatient (CLI) | payer OTHER, SELFPAY ==
[2023-08-27 10:48] LABS: Alanine Aminotransferase 16 IU/L (<35); Albumin 3.8 g/dL (3.5-5.0); Albumin Globulin Ratio 1.2 (1.0-2.8); Alkaline Phosphatase 48 U/L (38-126); Aspartate Aminotransferase 19 IU/L (14-36); BUN Creatinine Ratio 11.5 (6-22); Bilirubin Total 0.7 mg/dL (0.2-1.3); Blood Urea Nitrogen 10 mg/dL (7-17); Calcium 9.2 mg/dL (8.4-10.2); Carbon Dioxide 28 mmol/L (22-32); Chloride 100 mmol/L (98-107); Cholesterol 224 mg/dL (140-199); Estimated Glomerular Filt Rate > 60 mL/min (>60); Globulin 3.1 g/dL (1.7-4.1); Glucose 95 mg/dL (70-100); HDL Cholesterol 55 mg/dL (40-60); HEMOLYSIS < 15 (0-50); LDL Cholesterol Calculated 119 mg/dL (<100); Potassium 4.3 mmol/L (3.4-5.1); Sodium 135 mmol/L (137-145); Total Protein 6.9 g/dL (6.3-8.2); Triglycerides 249 mg/dL (35-150)
== END ==
PROVIDERS: Family Provider Family Medicine; PCP Family Medicine; Referring Provider Family Medicine; Visit Provider Family Medicine
DX: E78.5 Hyperlipidemia, unspecified (principal)
CPT/HCPCS: 36415; 80053; 80061

== ENCOUNTER → 2023-09-18 08:38 | Outpatient (CLI) | payer OTHER, SELFPAY ==
--- NOTE | 2023-09-18 08:39 | DI.MG.S_ITS ---
BILATERAL DIGITAL SCREENING MAMMOGRAM 3D/2D WITH CAD: 09/18/2023 No prior exams were available for comparison. There are scattered areas of fibroglandular density in both breasts (category b / 25%-50% glandular tissue). Current study was also evaluated with a Computer Aided Detection (CAD) system. There is an oval asymmetry with an obscured margin in the right breast middle depth lateral region seen on the craniocaudal view only. No other significant masses, calcifications, or other findings are seen in either breast. IMPRESSION: INCOMPLETE: NEEDS ADDITIONAL IMAGING EVALUATION The oval asymmetry in the right breast is indeterminate. Additional views with possible ultrasound are recommended. Based on the Tyrer Cuzick model (a risk assessment model) the patient's lifetime risk is 9.1% and her 10 year risk is 1.8%. According to the ACR, ACS, and NCCN guidelines, an annual breast MRI exam along with mammogram is recommended if the patient's lifetime risk is 20% or greater. This exam was interpreted at Station ID: [id number]. NOTE: For mammograms, a report in lay terms will be sent to the patient. Approximately 15% of breast malignancies will not be visualized mammographically. In the management of a palpable breast mass, a negative mammogram must not discourage biopsy of a clinically suspicious lesion. Electronically Signed By: Domenico Deleon M.D. [facility] [place]/:09/18/2023 15:28:41 letter sent: Additional Imaging Needed ACR BI-RADS Category 0: Incomplete 3340F
== END ==
PROVIDERS: Family Provider Family Medicine; PCP Family Medicine; Referring Provider Family Medicine; Visit Provider Family Medicine
DX: Z12.31 Encounter for screening mammogram for malignant neoplasm of breast (principal); R92.323 Mammographic fibroglandular density, bilateral breasts
CPT/HCPCS: 77063; 77067

== ENCOUNTER → 2023-10-16 12:02 | Outpatient (CLI) | payer OTHER, SELFPAY ==
--- NOTE | 2023-10-16 12:03 | DI.MG.S_ITS ---
UNILATERAL RIGHT DIGITAL DIAGNOSTIC MAMMOGRAM 3D/2D: 10/16/2023 CLINICAL: Additional evaluation requested from prior study. Comparison is made to exam dated: 09/18/2023 mammogram - [facility]. There are scattered areas of fibroglandular density in the right breast (category b / 25%-50% glandular tissue). There is an oval asymmetry with an obscured margin in the right breast middle depth lateral region seen on the craniocaudal view only. This is not seen in additional views. No other significant masses or calcifications are seen in the breast. IMPRESSION: NEGATIVE There is no mammographic evidence of malignancy. The oval asymmetry in the right breast is consistent with fibroglandular tissue and is benign. A 1 year screening mammogram is recommended. Exam findings were conveyed to the patient. Based on the Tyrer Cuzick model (a risk assessment model) the patient's lifetime risk is 9.1% and her 10 year risk is 1.8%. According to the ACR, ACS, and NCCN guidelines, an annual breast MRI exam along with mammogram is recommended if the patient's lifetime risk is 20% or greater. This exam was interpreted at Station ID: [id number]. NOTE: For mammograms, a report in lay terms will be sent to the patient. Approximately 15% of breast malignancies will not be visualized mammographically. In the management of a palpable breast mass, a negative mammogram must not discourage biopsy of a clinically suspicious lesion. Electronically Signed By: Domenico Deleon M.D. [facility] [place]/:10/16/2023 12:37:28 letter sent: Normal Exam ACR BI-RADS Category 1: Negative [id number]
== END ==
LOC: MAMMO 12:03
PROVIDERS: Family Provider Family Medicine; PCP Family Medicine; Referring Provider Family Medicine; Visit Provider Family Medicine
DX: R92.8 Other abnormal and inconclusive findings on diagnostic imaging of breast (principal); R92.321 Mammographic fibroglandular density, right breast
CPT/HCPCS: 77065; G0279

== ENCOUNTER → 2024-10-28 08:11 | Outpatient (CLI) | payer OTHER, SELFPAY ==
--- NOTE | 2024-10-28 08:12 | DI.MG.S_ITS ---
MM screening mammo BI: 10/28/2024. BI-RADS: 1 CLINICAL: 49-year old female for bilateral screening mammogram. Tyrer-Cuzick lifetime risk of 8.5%. No personal or first-degree family history of breast cancer. PRIOR EXAMS 10/16/2023, 09/18/2023. MAMMOGRAPHY TECHNIQUE: 2D and 3D (tomosynthesis) digital mammographic views obtained, with additional images as needed for full coverage. Current study was also evaluated with a Computer Aided Detection (CAD) system. DENSITY B. There are scattered areas of fibroglandular density. MAMMOGRAPHY FINDINGS Bilateral: No suspicious mass, asymmetry, microcalcification, or other abnormality seen. IMPRESSION: * No evidence of malignancy. RECOMMENDATIONS Bilateral * Annual screening mammography. OVERALL ASSESSMENT CATEGORY BI-RADS-1: Negative. The [employer] recommends annual screening mammography beginning at age 40 for women with average risk of breast cancer. ELECTRONICALLY SIGNED: Kanika Whitney M.D. on 10/28/2024 at 09:13:07 AM PT Interpreting Station ID: [id number]
[2024-10-28 09:35] LABS: Cholesterol 255 mg/dL (140-199); HDL Cholesterol 61 mg/dL (40-60); LDL Cholesterol Calculated 140 mg/dL (<100); Triglycerides 268 mg/dL (35-150)
== END ==
PROVIDERS: Family Provider Family Medicine; PCP Family Medicine; Referring Provider Family Medicine; Visit Provider Family Medicine
DX: Z12.31 Encounter for screening mammogram for malignant neoplasm of breast (principal); Z00.00 Encounter for general adult medical examination without abnormal findings; E78.5 Hyperlipidemia, unspecified
CPT/HCPCS: 36415; 77063; 77067; 80061